=== PATIENT | female | born 1995 | race American Indian/Alaskan Native ===

== ENCOUNTER 2019-09-14 13:33 | Outpatient (CLI) | payer BC ==
--- NOTE | 2019-09-15 11:13 | Ultrasound Report ---
LIMITED LEFT BREAST ULTRASOUND HISTORY: 24-year-old with a palpable dime size lump that she has felt for 3 weeks. COMPARISON: None. FINDINGS: Focused sonographic evaluation upon the 1:00 8 cm from the nipple location of the left [address] st demonstrates normal fibroglandular structures and no mass or cyst. There is a bulge of fibroglandu lar structures that comes very close to the skin and this appears to be what is palpable. IMPRESSION: Normal palpable breast tissue with no suspicious finding. No sonographic abnormalities in the area of clinical concern, which should therefore be managed on a clinical basis. If the clinical examination remains stable, recommend bilateral screening mammograms beginning annual ly at age 40 per the current [employer] guidelines or at intervals appropriate for the patient's risk factors. BIRADS 1: Negative. Signer Name: Aiden Tran MD Signed: 09/15/2019 11:09 AM Workstation Name: [id number]
== END 2019-09-14 13:34 | disposition home or self-care (01) ==
LOC: MAMMO 13:33
PROVIDERS: ATTEND Obstetrics & Gynecology
DX: N63.12 Unspecified lump in the right breast, upper inner quadrant (principal)